=== PATIENT | male | born 1940 | race Caucasian/White ===

== ENCOUNTER 2017-12-29 10:24 | Emergency (ER) | payer MEDICARE ==
[2017-12-29] MEDS ORDERED: PREDNISONE 20 MG TABLET ONE (10:53)
[2017-12-29] MEDS ORDERED: IPRATROPIUM/ALBUTEROL SULFATE 3 ML SOLUTION IH ONE ×2 (10:58→12:09)
[2017-12-29] MEDS ORDERED: SODIUM CHLORIDE 0.9% 1000ML 1,000 ML IV ONE (17:50)
== END 2017-12-29 13:06 | disposition home or self-care (01) ==
LOC: EDH 10:24
DX: J20.9 Acute bronchitis, unspecified (principal); I10 Essential (primary) hypertension; E78.5 Hyperlipidemia, unspecified; I25.10 Atherosclerotic heart disease of native coronary artery without angina pectoris; Z87.891 Personal history of nicotine dependence
CPT/HCPCS: 71046; 87804 ×2; 94640 ×2; 99285; J7030